=== PATIENT | female | born 1970 | race Caucasian/White ===

== ENCOUNTER 2016-04-18 08:51 | Day surgery (SDC) | payer OTHER ==
[2016-04-17 11:48] VITALS: BMI 35.1
[~2016-04-18] VITALS: Ht 160 cm; Wt 90.4 kg
[2016-04-18] VITALS (17 sets, daily range): BP systolic 110–137; BP diastolic 58–92; PULSE 62–94; RESP 12–24; Ht 160 cm; Wt 90.4 kg
--- NOTE | 2016-04-18 07:07 | PREOPHP ---
DATE OF ADMISSION: 04/18/2016 HISTORY OF PRESENT ILLNESS: A 45-year-old patient who is going to be admitted for diagnostic arthro scopy, right knee, partial medial and lateral meniscectomy, possible repair, application of Amadeo fountain. This 45-year-old patient has been experiencing knee pain for quite a while. Conservative treatment resulted in limited benefit to the patient. The patient has requested surgical intervention. PAST MEDICAL HISTORY: Negative. SOCIAL HISTORY: Nonsmoker, nondrinker. FAMILY HISTORY: Negative. ALLERGIES: NO HISTORY OF ALLERGY TO MEDICATION. MEDICATIONS: Have been: 1. 75 mg twice a day. 2. Folic acid. 3. . 4. Also Tylenol 3 given for postop. REVIEW OF SYSTEMS: Limited to present illness. PHYSICAL EXAMINATION: SKIN: Within normal limits. ENT: PERRLA. HEAD AND NECK: Normocephalic. Trachea midline. Bilateral and symmetrical carotid pulses. No mass , no bruit, no lymphadenopathy. CARDIOVASCULAR: Normal sinus rhythm. S1, S2 normal. No murmur. No JVD. No peripheral edema. LUNGS: Clear. ABDOMEN: Slightly protuberant. No organomegaly. No mass. Bowel sounds present. GENITOURINARY AND RECTAL: Not pertinent to this admission. MUSCULOSKELETAL: Height of 5 feet 6 inches, weight 190 pounds. Neck unremarkable. Upper extremiti es normal with normal neurological examination. Spine clear. Both lower extremities symmetrical an d normal except for the left knee. Range of motion of the knee is 0 to 125 degrees and subpatellar crepitation. There is no patellofemoral joint line tenderness. No excursion of the patella mediall y. Right knee range of motion is 0 to 110 degrees. There is excursion of the patella mediall y and laterally. There is marked subpatellar crepitation. There is tenderness over the medial tibi ofemoral joint line. No instability. Positive Denise test. NEUROLOGIC: Grossly normal. DIAGNOSTIC STUDIES: Radiologic report of the right knee indicates joint compartment degenerative di sease. Report of left knee indicates normal. X-ray has shown medial compartment and lateral compar tment femoral condyle and narrowing of the joint space. DIAGNOSES: 1. Synovitis of the right knee. 2. Right knee effusion. 3. Right knee arthropathy. 4. As well as meniscal tear. Treatment plan, alternatives, risks and benefits discussed. The patient understands possibility of complications from surgery such as infection, nerve damage, vascular damage, possibility of deep sridevi ous thrombosis, pulmonary embolism, hypersensitivity, and even . Selma result may not be obtai monica depending on nature of finding or known or unknown factors. Formal H and P is supposed to be done by PCP. Dictated By: JASBIR JOINER/JUSTINE Conf#: [id number] DID#: [id number]
[2016-04-18] MEDS ORDERED: PROPOFOL 20 ML ONE (10:33)
[2016-04-18] MEDS ORDERED: LIDOCAINE 2% (SDV) 5 ML INJ ONE (10:33)
[2016-04-18] MEDS ORDERED: SUCCINYLCHOLINE CHLORIDE 100 MG/5 ML SYG IV ONE (10:33)
[2016-04-18] MEDS ORDERED: CEFAZOLIN 1 GM INJ ONE (10:34)
[2016-04-18] MEDS ORDERED: FENTAnyl 50 MCG/ML VIAL ONE (10:34)
[2016-04-18] MEDS ORDERED: MIDAZOLAM 1 MG/ML 2 ML INJ ONE (10:34)
[2016-04-18] MEDS ORDERED: morphine SULFATE/PF (10 MG/10 ML) INJ ONE (12:50)
[2016-04-18] MEDS ORDERED: DEXAMETHASONE 4 MG/ML 1 ML INJ ONE (13:24)
[2016-04-18] MEDS ORDERED: ONDANSETRON 4 MG INJ ONE (13:24)
[2016-04-18] MEDS ORDERED: HYDROmorphONE 2 MG/ML SYG ONE (13:41)
[2016-04-18] MEDS ORDERED: HYDROmorphONE (0.2 MG/ML) 10ML SYG IV PRN ×2 (14:00)
[2016-04-18] MEDS ORDERED: FENTAnyl 50 MCG/ML VIAL IV PRN (14:00)
[2016-04-18] MEDS ORDERED: METOCLOPRAMIDE 10 MG INJ IV PRN (14:00)
[2016-04-18] MEDS ORDERED: PROCHLORPERAZINE 10 MG INJ IV PRN (14:00)
[2016-04-18] MEDS ORDERED: OXYCODONE/ACETAMINOPHEN (5/325) TAB PO PRN ×2 (14:00)
[2016-04-18] MEDS ORDERED: KETOROLAC 30 MG INJ IV ONE (14:00)
[2016-04-18] MEDS ORDERED: DIPHENHYDRAMINE 50 MG INJ IV PRN (14:00)
[2016-04-18] MEDS ORDERED: LABETALOL HCL 20MG INJ IV PRN (14:00)
[2016-04-18] MEDS ORDERED: hydrALAzine 20 MG INJ IV PRN (14:00)
[2016-04-18] MEDS ORDERED: MEPERIDINE 25 MG INJ IV PRN (14:00)
[2016-04-18] MEDS ORDERED: HYDROCODONE/APAP (5/325) TAB PO PRN ×4 (14:30)
[2016-04-18] MEDS ORDERED: NALOXONE (0.4 MG/ML) INJ ONE (14:56)
--- NOTE | 2016-04-18 16:39 | OPR ---
DATE OF OPERATION: 04/18/2016 PREOPERATIVE DIAGNOSES: 1. Torn medial meniscus. 2. Torn lateral meniscus, synovitis, plica syndrome, right knee. POSTOPERATIVE DIAGNOSES: 1. Torn medial meniscus. 2. Torn lateral meniscus, synovitis, plica syndrome, right knee. 3. Grade III chondromalacia of medial compartment. ANESTHESIA: General. BLEEDING: Minimal. COMPLICATIONS: None. DESCRIPTION OF PROCEDURE: Patient was transferred to the operating room and placed on the table in supine position and general anesthesia was induced. Ancef was given IV. Right lower extremity was prepped and draped in the routine fashion. Landmarks were through regular 2 anterior portals, mercado llar tendon and medial and lateral, and operative arthroscopy was commenced. Examination of suprapa tellar pouch indicated a short pouch and there was thick a fibrotic band going ____the suprapatellar pouch and causing really tightness of the patella ____by this thick fibrotic membrane. Medial and lateral gutter was clear of loose body. Patella was engaged in 40 degrees in trochlear groove. The re was grade II to III chondromalacia and there was a centralized trochlear groove of grade III pinp oint lesion. There was synovitis present mildly in the suprapatellar pouch, but inferior pole of th e patella as you come down, especially in the medial compartment. Going to the medial compartment, there was grade III, and mostly grade IV chondromalacia on the femoral condyle. There was grade II to III and 20% grade IV chondromalacia on the tibial surface. There was combination of flap tear, v ertical tear in the posterior horn, middle third of the anterior horn of the medial meniscus. There fore, partial medial meniscectomy to stable margins was done. There was considerable amount of syno vitis in the medial compartment which was all taken care of by coagulation with Arthrocare Bovie. S ynovitis was extending to the mid lateral and also intercondylar notch. Therefore, total synovectom y was performed. ACL was intact longitudinal tear, but no vascularity was seen. Lateral compartmen t indicated a small flap tear of the posterior middle third and there was a flap tear in the extrem e anterior horn. Therefore, partial lateral meniscectomy to stable margins was done. Articular ruthie face indicating grade I to II chondromalacia lateral compartment, going to suprapatellar pouch and again coming down to the inferior pole of the patella, total synovectomy with coagulation was done. Going to suprapatellar pouch, this thick fibrotic shelf which was actually 2 layers and a lot of t lily to release this the medial side and lateral side to the gutter and to the normal wall. This lo osened up the patella considerably. Knee was evacuated from debris with copious amount of saline irrigation. Portal was closed with bekah zoin and Steri-Strips, 10 mg Duramorph mixed with 10 mL of injectable saline was injected into the k nee. Sterile Childs dressing was applied. Procedure was terminated. General anesthesia was stopped . Patient was taken to the recovery room in good and stable condition. Dictated By: JASBIR JOINER/JUSTINE Conf#: [id number] DID#: [id number]
== END 2016-04-18 16:08 | disposition home or self-care (01) ==
LOC: SDS 08:51
PROVIDERS: ATTEND Internal Medicine Endocrinology, Diabetes & Metabolism
DX: M23.200 Derangement of unspecified lateral meniscus due to old tear or injury, right knee (principal); M94.261 Chondromalacia, right knee; M65.861 Other synovitis and tenosynovitis, right lower leg; I10 Essential (primary) hypertension; E66.9 Obesity, unspecified; Z68.35 Body mass index [BMI] 35.0-35.9, adult
CPT/HCPCS: 29880; 84703; C1713; J0330; J0690; J1100; J1170; J1885; J2250; J2274; J2310; J2405; J3010; Z7512; Z7610

== ENCOUNTER 2017-12-03 05:59 | Day surgery (SDC) | END 2017-12-03 11:08 | disposition home or self-care (01) ==